=== PATIENT | female | born 1990 | race Caucasian/White ===

== ENCOUNTER 2017-04-26 11:53 | Emergency (ER) | payer OTHER ==
--- NOTE | 2017-04-26 13:46 | UC ---
Complaint Female HPI - HPI Summary HPI Summary: 26 year old female with dysuria for a few days. no fever. no CVA tenderness. never had UTI before. LMP 5 years ago. No PCP. Just moved from [place]. - History Of Current Complaint Chief Complaint: UCAbdominalPain Stated Complaint: ABD PAIN/URINARY 2 DAYS Time Seen by Provider: 04/26/17 13:13 Hx Obtained From: Patient Hx Last Menstrual Period: 5-6 yrs Onset/Duration: Gradual Onset Timing: Intermittent Severity Initially: Moderate Severity Currently: Mild Character: Sharp - with urination Aggravating Factor(s): Urination - Allergies/Home Medications Allergies/Adverse Reactions: Allergies Allergy/AdvReac Type Severity Reaction Status Date / Time No Known Allergies Allergy Verified 04/26/17 13:04 PMH/Surg Hx/FS Hx/Imm Hx Previously Healthy: Yes - Surgical History Surgical History: None - Family History Known Family History: Positive: None - Social History Lives: With Family Alcohol Use: None Substance Use Type: None Smoking Status (MU): Heavy Every Day Tobacco Smoker Household Exposure Type: Cigarettes Review of Systems Genitourinary: Dysuria, Frequency, Urgency All Other Systems Reviewed And Are Negative: Yes Physical Exam Triage Information Reviewed: Yes Appearance: Well-Appearing, No Pain Distress, Well-Nourished Vital Signs: Initial Vital Signs Temp 98.5 F 04/26/17 12:53 Pulse 86 04/26/17 12:53 Resp 18 04/26/17 12:53 Vital Signs Reviewed: Yes Eye Exam: Normal ENT Exam: Normal Dental Exam: Normal Neck exam: Normal Neck: Positive: 1 Respiratory Exam: Normal Cardiovascular Exam: Normal Abdominal Exam: Normal Abdomen Description: Positive: Nontender, No Organomegaly, Soft. Negative: Bruit, CVA Tenderness (R), CVA Tenderness (L) Musculoskeletal Exam: Normal Neurological Exam: Normal Psychological Exam: Normal Skin Exam: Normal Complaint Female Dx - Course Course Of Treatment: advised to seek care with PCP and est care - Differential Dx/Diagnosis Provider Diagnoses: UTI Discharge - Discharge Plan Condition: Good Disposition: HOME Prescriptions: Sulfamethox/Trimethoprim DS* [Bactrim DS 800/160 TAB*] 1 tab PO BID #10 tab Patient Education Materials: Urinary Tract Infection in Women (ED) Additional Instructions: You have been given info for local doctors.
[2017-04-26 14:08] VITALS: BP 116/80
== END 2017-04-26 14:08 | disposition home or self-care (01) ==
LOC: UCCORT 11:53
DX: N39.0 Urinary tract infection, site not specified (principal); F17.210 Nicotine dependence, cigarettes, uncomplicated
CPT/HCPCS: 81003; 84702; 87077; 87086; 99212; G0463

== ENCOUNTER 2019-05-04 11:51 | Emergency (ER) | payer OTHER ==
[2019-05-04 12:01] VITALS: BP 108/63
--- NOTE | 2019-05-04 12:18 | UC ---
Back Pain HPI - HPI Summary HPI Summary: Patient is a 28yo female presenting with R lower back pain, chills, and decreased appetite x2 days. States she is "freezing" and it "hurts to breathe." States radiating pain to L lower back. Patient states she had burning with urination approx 3 days ago that she says "resolved for the most part." Denies injury or trauma. Denies URI symptoms. Denies cough, SOB and wheezing. Denies n/ v/d and abdominal pain. Denies fevers. Patient states she tried tramadol for the back pain but denies relief. She also notes she could be because shew has not had her period the past couple months. Notes neg preg test last week and thinks periods may be off due to stopping her control a month and a half ago. - History of Current Complaint Chief Complaint: UCGeneralIllness Stated Complaint: CHILLS,BODYACHES Hx Obtained From: Patient Hx Last Menstrual Period: unknown Onset/Duration: Gradual Onset, Lasting Days Timing: Constant Severity Initially: Mild Severity Currently: Severe Pain Intensity: 10 Pain Scale Used: 0-10 Numeric - Allergies/Home Medications Allergies/Adverse Reactions: Allergies Allergy/AdvReac Type Severity Reaction Status Date / Time No Known Allergies Allergy Verified 05/04/19 12:01 Home Medications: Home Medications Acetaminophen [Tylenol Extra Strength] 1,000 mg PO ONCE PRN 05/04/19 [History Confirmed 05/04/19] Naproxen TAB* [Naprosyn 250 mg TAB*] 250 mg PO Q12H PRN 05/04/19 [History Confirmed 05/04/19] PMH/Surg Hx/FS Hx/Imm Hx Previously Healthy: Yes - Surgical History Surgical History: None - Family History Known Family History: Positive: None, Unknown - Social History Alcohol Use: None Substance Use Type: None Smoking Status (MU): Former Smoker Household Exposure Type: Cigarettes Review of Systems All Other Systems Reviewed And Are Negative: Yes Constitutional: Positive: Chills, Fatigue. Negative: Fever ENT: Positive: Negative Respiratory: Positive: Other - painful breathing. Negative: Shortness Of Breath , Cough Cardiovascular: Positive: Negative Gastrointestinal: Negative: Abdominal Pain, Vomiting, Nausea Genitourinary: Positive: Dysuria, Vaginal/Penile Burning Musculoskeletal: Positive: Arthralgia, Myalgia Neurological: Positive: Headache Physical Exam Triage Information Reviewed: Yes Appearance: Ill-Appearing, Pain Distress Vital Signs: Initial Vital Signs Temp 97.6 F 05/04/19 11:57 Pulse 120 05/04/19 11:57 Resp 18 05/04/19 11:57 BP 108/63 05/04/19 11:57 Pulse Ox 98 05/04/19 11:57 Vital Signs Reviewed: Yes Eyes: Positive: Conjunctiva Clear ENT: Positive: Hearing grossly normal Neck: Positive: Supple Respiratory: Positive: Lungs clear, Normal breath sounds, No respiratory distress. Negative: Crackles, Rhonchi, Stridor, Wheezing Cardiovascular: Positive: Tachycardia Abdomen Description: Positive: CVA Tenderness (R), CVA Tenderness (L) Neurological: Positive: Alert, Fatigued, Lethargic Back Pain Course/Dx - Course Course Of Treatment: There is concern for pyleonephritis based on history and physical examination. I recommended the patient go straight to the ED for further evaluation and treatment. Patient voiced understanding and agreed to have boyfriend drive her to ED. Patient stable upon departure. Discussed patient with Dr. Pardo who also agreed with the plan. - Differential Dx/Diagnosis Differential Diagnosis/HQI/PQRI: Other - pyelonephritis Provider Diagnosis: Pain in lower back, Chills without fever Discharge ED - Sign-Out/Discharge Documenting (check all that apply): Patient Departure All imaging exams completed and their final reports reviewed: No Studies - Discharge Plan Condition: Stable Disposition: HOME-RECOMMEND TO ED Referrals: No Primary Care Phys,NOPCP [Primary Care Provider] - Additional Instructions: The provider that evaluated you today thinks that you need additional testing that can be completed the emergency department. It is recommended that you go directly to emergency department for further evaluation. This evaluation included blood work or imaging. This testing will be directed and decided by the provider that evaluates you at the emergency department. If pain becomes worse, you feel lightheaded, you have uncontrolled vomiting, or you have any other concerns while you are being driven to emergency department as recommended to pullover and contact 911. - Billing Disposition and Condition Condition: STABLE Disposition: Home-Recommend to ED - Attestation Statements Provider Attestation: Per institutional requirements, I have reviewed the chart, however, I was not consulted specifically or made aware of this patient by the midlevel provider. I did not personally evaluate, interact with , or disposition this patient.
== END 2019-05-04 12:15 | disposition home health service (06) ==
LOC: UCEAST 11:51
DX: M54.5 Low back pain (principal); M79.10 Myalgia, unspecified site; R68.83 Chills (without fever); R53.83 Other fatigue; R30.0 Dysuria; R51 Headache; Z87.891 Personal history of nicotine dependence
CPT/HCPCS: 99212; G0463

== ENCOUNTER 2019-05-17 12:10 | Emergency (ER) | payer OTHER ==
[2019-05-17 12:15] VITALS: BP 136/88
--- OUTSIDE RECORDS SUMMARY | 2019-05-17 12:21 | XMS REPORT | Continuity of Care Document ---
:1990 Author Organization [facility] Support Name Relationship Address Phone AGUEDA KING mother Unavailable MARILYNN DORSEY significant other [address] [place] [address] AGUEDA KING mother Unavailable Allergies and Intolerances No Allergy Data in the System Medications RxNorm Medication Dose Route Instructions Start End Status Date Date 2230 Cephalexin 500 mg oral orally 3 times Active per day 718099 Ciprofloxacin 500 500 mg oral orally 2 times Active MG Oral Tablet per day 1937881 Phenazopyridine 200 mg oral orally 3 times Active hydrochloride 200 per day MG Oral Tablet (administer after meal) 723 Amoxicillin 500 mg oral orally 2 times Completed per day 190060 chlorhexidine 15 mL mucous to affected Completed gluconate 1.2 membrane mucosal area 2 MG/ML Mouthwash times per day ( rinse mouth for at least 30 seconds;) 327249 Clonazepam 0.5 MG 0.5 mg oral orally 2 times Completed Oral Tablet per day as 016 needed. (5 days) (anxiety, MDD 2(two)) 800957 Etonogestrel 68 MG 1 implant subdermal subdermally Completed Drug Implant once Ibuprofen 800 MG 800 mg oral orally 3 times Completed Oral Tablet per day as needed. Medications At Time Of Discharge RxNorm Medication Dose Route Instructions Start Date End Date Status 2230 Cephalexin 500 mg oral orally 3 times Active per day 675586 Ciprofloxacin 500 MG 500 mg oral orally 2 times Active Oral Tablet per day 2643493 Phenazopyridine 200 mg oral orally 3 times Active hydrochloride 200 MG per day Oral Tablet (administer after meal) Problems Code Code System Problem Name Start Date End Date Status 19075889 SNOMED-CT Depressive disorder U Active 52124135 SNOMED-CT Anxiety U Active Procedures No data in the system Results Laboratory Results Order: CBC DIFF Specimen Source: Body Site : Legend: (G,H) = High, (GG,HH,CH,#H) = Above High Threshold, (#,L) = Low, (##, CL,#L,LL) = Below Low Threshold, (C,CC,CA,#A,A) = Abnormal LOINC Test Result Flag Range Units Date 6690-2 1WBC # Bld Auto 9.4 4.8-10.8 K/uL 05/05/2019 10:20 24562-2 1RBC # Bld 4.12 L 4.20-5.40 M/uL 05/05/2019 10:20 718-7 1Hgb Bld-mCnc 11.7 L 12.0-16.0 gm/dL 05/05/2019 10:20 4544-3 1Hct VFr Bld Auto 34.0 L 36.0-48.0 % 05/05/2019 10:20 787-2 1MCV RBC Auto 82.4 80.0-100.0 fL 05/05/2019 10:20 15893-2 1MCHC RBC-mCnc 34.3 30.0-36.5 % 05/05/2019 10:20 62860-4 1MCH RBC Qn 28.3 27.0-34.0 pg 05/05/2019 10:20 97879-8 1RDW RBC 11.6 11.0-15.0 % 05/05/2019 10:20 777-3 1Platelet # Bld Auto 201 130-450 K/uL 05/05/2019 10:20 00811-7 1PMV Bld Auto 8.1 6.0-12.0 fL 05/05/2019 10:20 751-8 1Neutrophils # Bld Auto 80 37-80 % 05/05/2019 10:20 39989-3 1Lymphocytes NFr Bld 10 10-50 % 05/05/2019 10:20 5905-5 1Monocytes NFr Bld Auto 10 0-12 % 05/05/2019 10:20 33468-6 1Eosinophil # Bld 0 <=8 % 05/05/2019 10:20 704-7 1Basophils # Bld Auto 0 <=3 % 05/05/2019 10:20 31466-7 1Neutrophils # Bld 7.5 1.8-8.6 K/uL 05/05/2019 10:20 731-0 1Lymphocytes # Bld Auto 0.9 0.5-5.0 K/uL 05/05/2019 10:20 742-7 1Monocytes # Bld Auto 0.9 0.0-1.3 K/uL 05/05/2019 10:20 60730-8 1Eosinophil # Bld 0.0 0.0-0.9 K/uL 05/05/2019 10:20 704-7 1Basophils # Bld Auto 0.0 0.0-0.3 K/ul 05/05/2019 10:20 Performing Lab Footnotes:[facility] - [id number] - [address] [place] [address] LAURA Chao [id number] Order: COMPREHENSIVE PANEL Specimen Source: Body Site: Legend: (G,H) = High, (GG,HH,CH,#H) = Above High Threshold, (#,L) = Low, (##,CL,#L,LL) = Below Low Threshold, (C,CC,CA,#A,A) = Abnormal LOINC Test Result Flag Range Units Date 2951-2 1Sodium SerPl-sCnc 136 136-145 mmol/L 05/05/2019 10:20 2823-3 1Potassium SerPl-sCnc 3.7 3.5-5.2 mmol/L 05/05/2019 10:20 5-0 1Chloride SerPl-sCnc 104 100-108 mmol/L 05/05/2019 10:20 8-9 1CO2 SerPl-sCnc 22 21-32 mmol/L 05/05/2019 10:20 2345-7 1Glucose SerPl-mCnc 97 70-100 mg/dL 05/05/2019 10:20 3094-0 1BUN SerPl-mCnc 9 7-21 mg/dL 05/05/2019 10:20 2160-0 1Creat SerPl-mCnc 0.7 0.6-1.3 mg/dL 05/05/2019 10:20 Interpretive Jessica: 1Normal Kidney Function or Mild Disease - GFR >OR= 60 Chronic Kidney Disease - GFR 15-59 Renal Failure - GFR < 15 GFR not calculated on patients under 18 years of age. Calculated (estimated) GFR is based on the MDRD Study equation, which assumes a steady state for creatinine. Estimated GFR may not be appropriate for medication dosing. 22934-5 1Ca-I SerPl-mCnc 9.1 8.5-10.8 mg/dL 05/05/2019 10:20 34228-3 1GFR/BSA.pred SerPl-ArVRat >60 05/05/2019 10:20 14661-2 1Bilirub Bld-mCnc 0.9 0.0-1.2 mg/dL 05/05/2019 10:20 2885-2 1Prot SerPl-mCnc 7.2 6.4-8.2 gm/dL 05/05/2019 10:20 1751-7 1Albumin SerPl-mCnc 3.9 3.4-4.8 gm/dL 05/05/2019 10:20 6768-6 1ALP SerPl-cCnc 63 40-150 U/L 05/05/2019 10:20 1742-6 1ALT SerPl-cCnc 15 0-55 U/L 05/05/2019 10:20 1920-8 1AST SerPl-cCnc 18 5-37 U/L 05/05/2019 10:20 Performing Lab Footnotes:[facility] - [id number] - [address] [place] [address] LAURA WOODWARD Order: URINALYSIS ROUTINE Specimen Source: Body Site: Legend: (G,H) = High, (GG,HH,CH,#H) = Above High Threshold, (#,L) = Low, (##,CL,#L,LL) = Below Low Threshold, (C,CC,CA,#A,A) = Abnormal LOINC Test Result Flag Range Units Date 57786 1Color Ur YELLOW 05/05/2019 10:09 97311-1 1Turbidity Ur Ql CLEAR CLEAR 05/05/2019 10:09 5811-5 1Sp Gr Ur Strip 1.010 1.000-1.030 05/05/2019 10:09 5803-2 1pH Ur Strip 6.0 5.0-8.0 05/05/2019 10:09 26432-0 1WBC # Ur Strip 2+ ! NEGATIVE 05/05/2019 10:09 5802-4 1Nitrite Ur Ql Strip POSITIVE ! NEGATIVE 05/05/2019 10:09 5804-0 1Prot Ur Strip-mCnc 30 [ 1+] ! NEGATIVE mg/dL 05/05/2019 10:09 5792-7 1Glucose Ur Strip-mCnc NORMAL NORMAL mg/dL 05/05/2019 10:09 5797-6 1Ketones Ur Strip-mCnc NEGATIVE NEGATIVE mg/dL 05/05/2019 10:09 52035-7 1Urobilinogen Ur 8 ! NORMAL mg/dL 05/05/2019 10:09 Strip-mCnc 88693-4 1Bilirub Ur Strip-mCnc NEGATIVE NEGATIVE mg/dL 05/05/2019 10:09 5794-3 1Hgb Ur Ql Strip 3+ ! NEGATIVE 05/05/2019 10:09 Performing Lab Footnotes:[facility] - [id number] - [address] [place] [address] LAURA Chao TRACE Order: URINE MICROSCOPIC Specimen Source: Body Site: Legend: (G,H) = High, (GG,HH,CH,#H) = Above High Threshold, (#,L) = Low, (##,CL,#L,LL) = Below Low Threshold, (C,CC,CA,#A,A) = Abnormal LOINC Test Result Flag Range Units Date 1URINE MICROSCOPIC EXAM 5821-4 1WBC #/area UrnS HPF >100 ! 0-2 /HPF 05/05/2019 10:09 5808-1 1RBC # UrnS HPF 10-25 ! NONE SEEN /HPF 05/05/2019 10:09 Interpretive Jessica: 1The [place] [employer] has defined Microscopic Hematuria as 3 or more RBC per high powered field from a single positive urinalysis with microscopy. 36226-1 1Bacteria UrnS Ql Micro MANY ! NONE SEEN /HPF 05/05/2019 10:09 5787-7 1Epi Cells #/area UrnS HPF FEW ! NONE SEEN /HPF 05/05/2019 10:09 Performing Lab Footnotes:[facility] - [id number] - [address] [place] [address] LAURA Chao RICCIOMD1 Microbiology Results w Susceptibilities Order: CULTURE URINE Specimen Source: Urine Body Site: Urine specimen collection, clean catchIsolate #1:1Escherichia coli (>100,000 col/mL)Susceptibility: LOINC Code Drug Interpretation Result Date 6984-9 1ESBL NEG Neg 05/05/2019 10:09:59 AM 28-1 1Ampicillin R >=32 05/05/2019 10:09:59 AM 76-0 1Cefazolin I 16 05/05/2019 10:09:59 AM 141-2 1Ceftriaxone SS <=1 05/05/2019 10:09:59 AM 267-5 1Gentamicin SS <=1 05/05/2019 10:09:59 AM 185-9 1Ciprofloxacin SS <=0.25 05/05/2019 10:09:59 AM 28897-9 1Levofloxacin SS <=0.12 05/05/2019 10:09:59 AM 363-2 1Nitrofurantoin SS <=16 05/05/2019 10:09:59 AM 516-5 1Trimethoprim/Sulfa SS <=20 05/05/2019 10:09:59 methoxazole AM Performing Lab Footnotes:[facility] - [id number] - [address] [place] [address] LAURA CANOCIOMD1 Social History Code Code System Social History Observation Description Dates Observed 130013290 SNOMED CT Current Smoking Status Never smoker UNK AdministrativeGender Sex Assigned At Unknown Vital Signs Code Code System Vitals Value Date 8865-8 [facility] Pulse Rate 90 {beats}/min 05/05/2019 9279-1 [facility] Respiratory Rate 16 /min 05/05/2019 51388-4 [facility] O2% BldC Oximetry 99 % 05/05/2019 8480-6 [facility] BP Systolic 120 mm[Hg] 05/05/2019 8462-4 [facility] BP Diastolic 73 mm[Hg] 05/05/2019 8310-5 [facility] Body Temperature 97.7 [degF] 05/05/2019 8302-2 INC Height 62 [in_i] 05/05/2019 85039-9 [facility] Weight 77.27 kg 05/05/2019 3140-1 [facility] Body surface area Derived from formula 1.79 m2 05/05/2019 84253-8 [facility] BMI (Body Mass Index) 31.3 kg/m2 05/05/2019 Goals Section No data in the system Health Concerns No data in the systemEncounter Diagnosis Date Code Code System Diagnosis Status N39.0 ICD10 UTI SITE NOT SPECIFIED Active Advance Directives *RHIO - CONSENT IS YES Directive Type Effective Date Logistics And Planning Manager Notes Supporting Document Name Address Phone No Directive Type 04/08/2015 Not Specified Not Specified Not Specified None No specified 10:24:25 AM Encounters Encounter Diagnosis Location Date UTI SITE NOT SPECIFIED [facility] 05/05/2019 Family History Family history not obtained Functional Status Code Functional Condition Code System Date Status Independent adls SNOMED CT 05/05/2019 Active Appears well nourished/hydrated SNOMED CT 05/05/2019 Active Immunizations No data in the system Medical Equipment No data in the system Mental Status Code Cognitive Condition Code System Date Status Mild distress SNOMED CT 05/05/[address] SN[address] 05/05/2019 Active 794258033 Mentally alert SNOMED CT 05/05/2019 Active Assessment and Plan Assessments No data in the systemPlan Of Treatment No data in the systemPending Tests No data in the system Hospital Discharge Instructions No data in the system Reason for Visit Reason for Visit Back Pain
[2019-05-17] MEDS ORDERED: Ketorolac *IM* INJ* 60 MG/2 ML VIAL IM ONE (12:47)
[2019-05-17] MEDS ORDERED: HYDROcodone/ACETAMIN 5-325 MG* 1 TAB PO ONE (12:47)
--- NOTE | 2019-05-17 13:53 | ED ---
Throat Pain/Nasal Congestion - HPI Summary HPI Summary: This patient is a 28-year-old female who presents to the ED with left-sided upper and lower dental pain. Patient states she has an appointment to have all of her teeth pulled on June 03, however is unable to wait that long for pain control. She is been taking her mothers hydrocodone with good relief. She states she cannot longer be on this medication because it is her mothers. She would like her own. She has been taking Tylenol and ibuprofen without any relief. She states she took no medications today. She was on penicillin 3 weeks ago but states the pain returned. She does state she has been taking over -the-counter Anbesol and other [id number] numbing medications, however they are not working. She denies any fevers, sweats, chills. She denies any dysphagia or odynophagia. Denies any obvious swelling or enlarged lymph nodes. She states she has had dental pain intermittently for several years. Denies any other pain. - History of Current Complaint Chief Complaint: EDDentalPain Time Seen by Provider: 05/17/19 12:20 Hx Obtained From: Patient Onset/Duration: Sudden Onset Severity: Moderate Associated Signs And Symptoms: Negative: Dysphagia, FB Sensation, Drooling, Wheezing, Hoarseness - Epiglottits Risk Factors Epiglottis Risk Factors: Negative - Allergies/Home Medications Allergies/Adverse Reactions: Allergies Allergy/AdvReac Type Severity Reaction Status Date / Time No Known Allergies Allergy Verified 05/17/19 12:13 PMH/Surg Hx/FS Hx/Imm Hx Previously Healthy: Yes - Immunization History Hx Pertussis Vaccination: No Immunizations Up to Date: Yes Infectious Disease History: No Infectious Disease History: Denies: Traveled Outside the [place] in Last 30 Days - Family History Known Family History: Positive: None, Unknown - Social History Occupation: Unemployed Lives: With Family Alcohol Use: None Hx Substance Use: No Substance Use Type: Reports: None Hx Tobacco Use: Yes Smoking Status (MU): Former Smoker Review of Systems Negative: Fever, Chills, Fatigue, Skin Diaphoresis Positive: Dental Pain Negative: Palpitations, Chest Pain Negative: Shortness Of Breath, Cough Genitourinary: Negative Positive: no symptoms reported, see HPI Negative: Arthralgia, Myalgia Skin: Negative Neurological: Negative All Other Systems Reviewed And Are Negative: Yes Physical Exam Triage Information Reviewed: Yes Vital Signs On Initial Exam: Initial Vitals Temp Pulse Resp BP Pulse Ox 98.1 F 79 19 136/88 99 05/17/19 12:11 05/17/19 12:11 05/17/19 12:11 05/17/19 12:11 05/17/19 12:11 Vital Signs Reviewed: Yes Appearance: Positive: Well-Appearing, Well-Nourished Skin: Positive: Warm, Skin Color Reflects Adequate Perfusion Head/Face: Positive: Normal Head/Face Inspection Eyes: Positive: Normal, Conjunctiva Clear Dental: Positive: Other - pain to the upper and lower jaw Neck: Positive: Supple, No Lymphadenopathy Respiratory/Lung Sounds: Positive: Clear to Auscultation, Breath Sounds Present Cardiovascular: Positive: RRR, Pulses are Symmetrical in both Upper and Lower Extremities Musculoskeletal: Positive: Normal, Strength/ROM Intact Neurological: Positive: Sensory/Motor Intact, Alert, Oriented to Person Place, Time, Speech Normal Psychiatric: Positive: Normal, Affect/Mood Appropriate Procedures - Sedation Patient Received Moderate/Deep Sedation with Procedure: No Diagnostics - Vital Signs Vital Signs Temp Pulse Resp BP Pulse Ox 05/17/19 13:09 98.1 F 79 19 136/88 99 05/17/19 12:11 98.1 F 79 19 136/88 99 - Laboratory Lab Statement: Any lab studies that have been ordered have been reviewed, and results considered in the medical decision making process. EENT Course/Dx - Course Course Of Treatment: No dental abscess or lesions seen over area of concern. No erythema at the site of pain. No drainage from area. Several dental caries , cavities, crowding and broken teeth throughout. Pain on palpation over upper and lower mandible. No TMJ tenderness. No pain with opening and closing mouth. Poor dental hygiene and outpatient dental care. Will treat for possible dental infection/abscess based on symptoms of pain and radiation to jaw and ear. No allergies. Will treat with Penicillin and will be given toradol. She is given one dose of hydrocodone in the ED. Patient to follow up immediately with dentist. - Differential Diagnoses Differential Diagnoses: Dental Abscess, Dental Caries - Diagnoses Provider Diagnoses: Pain, dental Discharge ED - Sign-Out/Discharge Documenting (check all that apply): Patient Departure - Discharge Plan Condition: Stable Disposition: HOME Prescriptions: Ketorolac TAB * [Toradol TAB *] 10 mg PO Q6H #16 tab Penicillin VK 500 MG TAB(NF) [Penicillin VK 500 mg Tab(NF)] 500 mg PO TID #21 tab MDD 3 Patient Education Materials: Toothache (ED) Referrals: No Primary Care Phys,NOPCP [Primary Care Provider] - Additional Instructions: You have been diagnosed with dental pain with possible infection: Antibiotics as prescribed to you. Penicillin three times daily for 7 days. To minimize the potential for gastrointestinal intolerance, Penicillin should be taken at the start of a meal. If you have any questions about your medication, please contact us or ask your pharmacist. Salt water rinses several times per day will improve healing time. Toradol four times daily x 4 days DO NOT TAKE NSAIDS WHILE TAKING THIS MEDICATIONS Tylenol 650mg three times daily Use these intermittently May use lollicaines over the area for comfort. Follow up with a dentist for routine care to prevent recurrence of infections. If fever, worsening pain or swelling develops, see your PCP, dentist or come back to the Emergency Department. - Billing Disposition and Condition Condition: STABLE Disposition: Home
== END 2019-05-17 13:09 | disposition home or self-care (01) ==
LOC: ED 12:10
DX: K08.89 Other specified disorders of teeth and supporting structures (principal); Z87.891 Personal history of nicotine dependence
CPT/HCPCS: 96372; 99282; J1885

== ENCOUNTER → 2019-09-07 11:20 | Emergency (ER) | payer OTHER ==
[2019-09-07 12:02] VITALS: BP 117/71
--- NOTE | 2019-09-07 12:26 | UC ---
Respiratory Complaint HPI - HPI Summary HPI Summary: 28 year old female with no PMH, 1 year old baby at home, + tob use/ exposure, presents with dry cough, hoarse voice, sore throat x 2-3 days. Mother is concern about getting infected as she has DM and wanted to have daughter looked at. no fever, chills, no GI symptoms. - concerned about - History of Current Complaint Chief Complaint: UCGeneralIllness Stated Complaint: COUGH Time Seen by Provider: 09/07/19 12:12 Hx Obtained From: Patient Hx Last Menstrual Period: "a while ago" ?: No Onset/Duration: Sudden Onset, Lasting Days - 3 Timing: Constant Severity Currently: None Pain Intensity: 0 Pain Scale Used: 0-10 Numeric Character: Cough: Nonproductive Aggravating Factors: Deep Breaths Associated Signs And Symptoms: Positive: URI, Hoarseness. Negative: Fever, Chills, Pleuritic Chest Pain, Wheezing, Hemoptysis, Dizziness - Allergies/Home Medications Allergies/Adverse Reactions: Allergies Allergy/AdvReac Type Severity Reaction Status Date / Time No Known Allergies Allergy Verified 09/07/19 12:02 Home Medications: Home Medications NK [No Home Medications Reported] 09/07/19 [History Confirmed 09/07/19] PMH/Surg Hx/FS Hx/Imm Hx Previously Healthy: Yes - Surgical History Surgical History: None - Family History Known Family History: Positive: None, Unknown - Social History Alcohol Use: None Substance Use Type: None Smoking Status (MU): Light Every Day Tobacco Smoker Type: Cigarettes Amount Used/How Often: 3 cig per day Household Exposure Type: Cigarettes Review of Systems All Other Systems Reviewed And Are Negative: Yes Constitutional: Negative: Fever, Chills, Fatigue Skin: Negative: Rash ENT: Positive: Sore Throat. Negative: Ear Ache, Nasal Discharge, Sinus Congestion, Sinus Pain/Tenderness Respiratory: Positive: Cough Cardiovascular: Positive: Negative Gastrointestinal: Positive: Negative Genitourinary: Positive: Negative Musculoskeletal: Positive: Negative Neurological/Mental Status: Positive: Negative Psychological: Positive: Negative Is Patient Immunocompromised?: No Physical Exam Triage Information Reviewed: Yes Appearance: Well-Appearing, No Pain Distress, Well-Nourished Vital Signs: Initial Vital Signs Temp 97.7 F 09/07/19 11:57 Pulse 85 09/07/19 11:57 Resp 16 09/07/19 11:57 BP 117/71 09/07/19 11:57 Pulse Ox 99 09/07/19 11:57 Vital Signs Reviewed: Yes Eyes: Positive: Conjunctiva Clear ENT: Positive: Hearing grossly normal, Pharyngeal erythema - minimal, Uvula midline. Negative: TM bulging, TM dull, TM red, Tonsillar swelling, Tonsillar exudate Neck: Positive: Supple, No Lymphadenopathy, Tenderness @ - mild submand tenderness b/l, no LAD. Negative: Nuchal Rigidity Respiratory: Positive: Chest non-tender, Lungs clear, Normal breath sounds, No respiratory distress, No accessory muscle use. Negative: Respiratory distress, Crackles, Rhonchi, Stridor, Wheezing Cardiovascular: Positive: RRR, No Murmur Neurological Exam: Normal Psychological Exam: Normal Skin Exam: Normal Respiratory Course/Dx - Course Course Of Treatment: Laryngitis - Follow up within 2-3 days if no improvement of symptoms or worsening. - Go to ER with difficulty swallowing/ breathing - Over the counter medications for symptoms, such as cough drops - Increase fluid intake negative - Differential Dx/Diagnosis Differential Diagnosis/HQI/PQRI: Laryngitis, Lower Resp Infection Provider Diagnosis: Laryngitis Discharge ED - Sign-Out/Discharge Documenting (check all that apply): Patient Departure All imaging exams completed and their final reports reviewed: No Studies - Discharge Plan Condition: Good Disposition: HOME Patient Education Materials: Laryngitis (ED) Referrals: No Primary Care Phys,NOPCP [Primary Care Provider] - [facility] [Outside] Additional Instructions: - Follow up within 2-3 days if no improvement of symptoms or worsening. - Go to ER with difficulty swallowing/ breathing - Over the counter medications for symptoms, such as cough drops - Increase fluid intake Negative urine - Billing Disposition and Condition Condition: GOOD Disposition: Home - Attestation Statements Provider Attestation: I was available for consult. This patient was seen by the LADONNA. The patient was not presented to , seen by or examined by -Olayinka Simons MD
== END | disposition home or self-care (01) ==
LOC: UCEAST 11:20
DX: J04.0 Acute laryngitis (principal); F17.210 Nicotine dependence, cigarettes, uncomplicated
CPT/HCPCS: 84702; 87651

== ENCOUNTER 2019-10-18 10:56 | Emergency (ER) | payer OTHER ==
[2019-10-18 10:59] VITALS: BP 120/85
[2019-10-18] MEDS ORDERED: Ibuprofen TAB* 600 MG PO ONE (11:33)
[2019-10-18] MEDS ORDERED: traMADol TAB* 50 MG PO ONE (11:33)
--- NOTE | 2019-10-18 11:34 | ED ---
Complex/Multi-Sys Presentation - HPI Summary HPI Summary: 28 y/o female presented to [facility] with lower left dental pain present for several days. Pt notes she has had pain in the same area before and was going to have teeth pulled but office canceled 2/2 COVID closure. She called her offices at [facility] and in [place] but has not been able get an apt before [facility] due to closings. Denies fevers or facial swelling. No trouble swallowing or breathing. Notes no significant PMHx, but notes FHx of diabetes in her mother. - History Of Current Complaint Chief Complaint: EDDentalPain Time Seen by Provider: 10/18/19 11:17 Hx Obtained From: Patient Onset/Duration: Lasting Days, Still Present Location: Pain At: - left lower dental pain Aggravating Factor(s): palpation Related History: Other - Hx of pain in the same area, scheduled tooth removal - Allergies/Home Medications Allergies/Adverse Reactions: Allergies Allergy/AdvReac Type Severity Reaction Status Date / Time No Known Allergies Allergy Verified 10/18/19 10:59 Home Medications: Home Medications Ibuprofen TAB* [Motrin TAB* 800 MG] 800 mg PO TID PRN 10 Days #30 tab 10/18/19 [ Rx] Penicillin VK 500 MG TAB(NF) [Penicillin VK 500 mg Tab] 500 mg PO QID 7 Days # 28 tab 10/18/19 [Rx] traMADol TAB* [Ultram*] 50 mg PO Q8H PRN 3 Days #12 tab MDD 3 10/18/19 [Rx] PMH/Surg Hx/FS Hx/Imm Hx Endocrine/Hematology History: Denies: Hx Diabetes, Hx Thyroid Disease Cardiovascular History: Denies: Hx Hypertension Respiratory History: Denies: Hx Asthma, Hx Chronic Obstructive Pulmonary Disease (COPD) GI History: Denies: Hx Ulcer Infectious Disease History: No Infectious Disease History: Denies: Hx Hepatitis, Hx Human Immunodeficiency Virus (HIV), Traveled Outside the [place] in Last 30 Days - Family History Known Family History: Positive: Diabetes - mother - Social History Alcohol Use: None Hx Substance Use: No Substance Use Type: Reports: None Hx Tobacco Use: Yes Smoking Status (MU): Light Every Day Tobacco Smoker Type: Cigarettes Amount Used/How Often: 3 cig per day Review of Systems Negative: Fever - vitals show temp at 97.6F Positive: Other - dental pain All Other Systems Reviewed And Are Negative: Yes Physical Exam - Summary Physical Exam Summary: General: Well appearing, no distress HEENT: PERRL; Poor dentition with multiple dental caries; Tend 2nd and 3rd left lower molars with no obvious abscess; No trismus Cardiovascular: Skin is well perfused Pulmonary: No respiratory distress, no tachypnea Abdomen: Non-distended Skin: Warm, pink, dry MSK: No edema Psych: Normal affect Neuro: A&Ox3 Triage Information Reviewed: Yes Vital Signs On Initial Exam: Initial Vitals Temp Pulse Resp BP Pulse Ox 97.6 F 84 16 120/85 99 10/18/19 10:58 10/18/19 10:58 10/18/19 10:58 10/18/19 10:58 10/18/19 10:58 Vital Signs Reviewed: Yes Procedures - Sedation Patient Received Moderate/Deep Sedation with Procedure: No Diagnostics - Vital Signs Vital Signs Temp Pulse Resp BP Pulse Ox 10/18/19 10:58 97.6 F 84 16 120/85 99 - Laboratory Lab Statement: Any lab studies that have been ordered have been reviewed, and results considered in the medical decision making process. Complex Multi-Symp Course/Dx Course Of Treatment: 28 y/o female p/w L lower dental pain 2/2 caries. - PE without obvious periapical abscess. No trismus. Poor dentition 2nd and 3rd molars. [facility] apt November 02. Given pain control, pencillin. Return for worsening symptoms. - Diagnoses Provider Diagnoses: Pain, dental - Critical Care Time Critical Care Statement: Critical care time is provided exclusive of any time spent performing procedures. Discharge ED - Sign-Out/Discharge Documenting (check all that apply): Patient Departure - dc - Discharge Plan Condition: Stable Disposition: HOME Prescriptions: Ibuprofen TAB* [Motrin TAB* 800 MG] 800 mg PO TID PRN 10 Days #30 tab PRN Reason: Pain - Moderate Penicillin VK 500 MG TAB(NF) [Penicillin VK 500 mg Tab] 500 mg PO QID 7 Days # 28 tab traMADol TAB* [Ultram*] 50 mg PO Q8H PRN 3 Days #12 tab MDD 3 PRN Reason: Pain - Severe Patient Education Materials: Dental Abscess (ED), Toothache (ED) Referrals: Juan Manuel Mccray PA [Primary Care Provider] - Additional Instructions: You were seen in the emergency department for dental pain. Please take penicillin for 7 days. Take Motrin daily, take tramadol for severe pain. Follow-up with her dentist. Please follow up with your primary care doctor in next 2-3 days and return to emergency department for worsening pain, fevers, inability to open her mouth, trouble swallowing, or concerning symptoms. It was a pleasure taking care of you today. - Billing Disposition and Condition Condition: STABLE Disposition: Home - Attestation Statements Document Initiated by Abril: Yes Documenting Scribe: Cruz Lora Provider For Whom Abril is Documenting (Include Credential): Rosetta Rice MD Scribe Attestation: ICruz, scribed for Rosetta Rice MD on 10/18/19 at 1156. Scribe Documentation Reviewed: Yes Provider Attestation: The documentation as recorded by the Cruz palacios accurately reflects the service I personally performed and the decisions made by , Rosetta Rice MD Status of Scribe Document: Viewed
== END 2019-10-18 11:40 | disposition home or self-care (01) ==
LOC: ED 10:56
DX: K08.89 Other specified disorders of teeth and supporting structures (principal); F17.210 Nicotine dependence, cigarettes, uncomplicated
CPT/HCPCS: 99282; A9270-GY

== ENCOUNTER 2020-07-20 07:48 | Inpatient (IN) ==
[2020-07-20] MEDS ORDERED: Buffered Lidocaine 1% SYRIN 1 ml INTRADERM ONE (08:59)
[2020-07-20] MEDS ORDERED: Lactated Ringers 1000 ml BAG 1,000 ML IV ONE ×2 (08:59→13:19)
[2020-07-20] MEDS ORDERED: Oxytocin in LR 20 UNITS/1,000 ML BAG IVPB SCH ×2 (09:00→19:00)
[2020-07-20 09:53] LABS: Urine Benzodiazepine Screen None Detected (None Detect); Urine Cannabinoids Screen None Detected (None Detect); Urine Opiates Screen None Detected (None Detect)
[2020-07-20] MEDS: Lactated Ringers 1000 ml BAG 1,000 ML IV SCH ×2 (10:43→13:15)
[2020-07-20 10:46] LABS: ABS Lymphocytes 1.3 10^3/ul (1.0-4.8); ABS Monocytes 0.5 10^3/ul (0-0.8); ABS Neutrophils 6.9 10^3/ul (1.5-7.7); Eosinophil % 0.4 %; Hematocrit 36 % (35-47); Hemoglobin 12.2 g/dL (12.0-16.0); Mean Corpuscular HGB Conc 34 g/dL (31-36); Mean Corpuscular Hemoglobin 28 pg (27-31); Mean Corpuscular Volume 84 fL (80-97); Mean Platelet Volume 9.3 fL (7.4-10.4); Nucleated Red Blood Cells % 0.1; Platelet Count 190 10^3/uL (150-450); Red Blood Count 4.31 10^6 /uL (3.70-4.87); Red Cell Distribution Width 15 % (10-15); White Blood Count 8.8 10^3/uL (3.5-10.8)
[2020-07-20] MEDS ORDERED: OBEPIDURAL 250 ML EPIDURAL ONE (12:21)
[2020-07-20] MEDS ORDERED: fentaNYL 100 mcg/2 ml 50 MCG/ML VIAL ONE (12:29)
[2020-07-20] MEDS ORDERED: Sodium Citrate/Citric Acid LIQ 15 ML UDC PO PRN (13:19)
[2020-07-20] MEDS ORDERED: Phenylephrine 40 mcg/mL 10mL (400mcg) SYRINGE IV PUSH PRN ×2 (13:19)
[2020-07-20] MEDS ORDERED: EPHEDrine (Pressors) 50 MG/ML VIAL IV PUSH PRN ×2 (13:19)
[2020-07-20] MEDS ORDERED: OBEPIDURAL 250 ML EPIDURAL SCH (14:00)
[2020-07-20] MEDS ORDERED: Lactated Ringers 1000 ml BAG 1,000 ML IV SCH (14:00)
[2020-07-20] MEDS ORDERED: Measles, Mumps,Rubella VACC 0.5 ML/VIAL SUBCUT ONE (18:28)
[2020-07-20] MEDS ORDERED: Glycerin ADULT 2.4 gm SUPP PR PRN (18:28)
[2020-07-20] MEDS: Dibucaine 1% OINT 28.35 GM TUBE PR PRN (19:02)
[2020-07-20] MEDS: Witch Hazel PAD JAR TOPICAL PRN (19:02)
[2020-07-21 08:09] LABS: ABS Lymphocytes 1.5 10^3/ul (1.0-4.8); ABS Monocytes 0.6 10^3/ul (0-0.8); ABS Neutrophils 7.7 10^3/ul (1.5-7.7); Eosinophil % 0.3 %; Hematocrit 36 % (35-47); Lymphocyte % 15.2 %; Mean Corpuscular HGB Conc 34 g/dL (31-36); Mean Corpuscular Hemoglobin 28 pg (27-31); Mean Corpuscular Volume 84 fL (80-97); Mean Platelet Volume 9.6 fL (7.4-10.4); Platelet Count 199 10^3/uL (150-450); Red Blood Count 4.22 10^6 /uL (3.70-4.87); Red Cell Distribution Width 14 % (10-15); White Blood Count 9.8 10^3/uL (3.5-10.8)
[2020-07-21] MEDS ORDERED: Measles, Mumps,Rubella VACC 0.5 ML/VIAL ONE (12:03)
[2020-07-21 15:52] VITALS: BP 126/71
[2020-07-21] MEDS: Witch Hazel PAD JAR TOPICAL PRN (16:41)
[2020-07-21] MEDS: Dibucaine 1% OINT 28.35 GM TUBE PR PRN (16:41)
== END 2020-07-21 18:40 | disposition home or self-care (01) | DRG 560 ==
LOC: MCHOBOUT 07:48 → MCHOB 09:12
PROVIDERS: ADMIT Midwife; ATTEND Midwife